=== PATIENT | female | born 1990 | race African-American/Black ===

== ENCOUNTER → 2022-06-10 | Outpatient (CLI) | payer OTHER ==
--- NOTE | 2022-06-11 07:20 | CT ---
EXAMINATION TYPE: CT abdomen pelvis w con DATE OF EXAM: 06/10/2022 HISTORY: anterior abdominal pain, hernia repair. CT DLP: 1689.2mGycm Automated Exposure Control for Dose Reduction was Utilized. CONTRAST: CT scan of the abdomen and pelvis is performed with IV Contrast, patient injected with 100 mL of Isov ue 300. COMPARISON: None. FINDINGS: LUNG BASES: Focal anterior right basilar linear scarring. LIVER/GB: No significant abnormality is appreciated. PANCREAS: No significant abnormality is seen. SPLEEN: No significant abnormality is seen. ADRENALS: No significant abnormality is seen. KIDNEYS: There is 7 mm nonobstructing calculus lower pole right kidney coronal image 55. Symmetric co rtical uptake and excretion without hydronephrosis seen bilaterally. BOWEL: Oral contrast reaches level of the rectum. No suspicious small or large bowel dilatation. UTERUS/ADNEXA: Anteverted uterus with central metallic IUD. Bilateral ovaries symmetric and within no rmal limits in size on axial image 60. LYMPH NODES: No greater than 1cm abdominal or pelvic lymph nodes are appreciated. OSSEOUS STRUCTURES: Posterior spur disc L5-S1 level sagittal image 66. OTHER: There is ventral wall with neck measuring 3.7 cm in diameter axial image 39 above the umbilicu s containing fat along with mesenteric vessels and portion of transverse along with entire right colo n and terminal ileum. IMPRESSION: Confirmation of large ventral wall hernia as detailed above.
== END | disposition home or self-care (01) ==
LOC: RADCTMAIN 16:59
PROVIDERS: ATTEND Surgery
DX: K44.9 Diaphragmatic hernia without obstruction or gangrene (principal); K45.0 Other specified abdominal hernia with obstruction, without gangrene
CPT/HCPCS: 74177; Q9967 ×2